=== PATIENT | male | born 1975 | race Caucasian/White ===

== ENCOUNTER 2023-06-30 09:59 | Outpatient (OUT) | payer MEDICAID, SELFPAY ==
--- NOTE | 2023-06-30 10:41 | CA_ITS ---
Patient Name: YOGESH LAMBERT MR#: [id number] : 1975 Exam Date: 06/30/2023 Ordering Doctor: DR TULIO DEAL M.D. ECHOCARDIOGRAM REPORT PROCEDURE: CA ECHO DOPPLER COMPLETE INDICATIONS: Heart failure with reduced ejection fraction, defibrillator, myocardial infarct with PTCA, hypertension COMPARISON: None. DESCRIPTION: COMPLETE ECHOCARDIOGRAM Real-time transthoracic echocardiography with 2D, M-mode, spectral and color flow Doppler performed. QUALITY: Technical quality was good. 69 , 150#, BSA LEFT VENTRICLE: Normal chamber size. Normal left ventricular wall thickness. Systolic function is mildly to moderately reduced. There is hypokinesis of the mid and apical anteroseptum and inferoseptum, apical cap, apical lateral, anterior and inferior wall. LV EF: Mildly to moderately reduced left ventricular ejection fraction, (35-40%). DIASTOLIC: ATRIAL SEPTUM: Visually appears intact. LEFT ATRIUM: Normal chamber size. RIGHT ATRIUM: Normal chamber size. RIGHT VENTRICLE: Normal chamber size. Normal systolic function. Pacer wire present. TRICUSPID VALVE: Normal mobility and thickness. No stenosis with mild regurgitation. No evidence of pulmonary hypertension. RVSP 27 mmHg MITRAL VALVE: Normal mobility and thickness. No evidence of mitral valve stenosis. There is no mitral annular calcification. Mild mitral regurgitation. AORTIC VALVE: Normal trileaflet appearance. No visible sclerosis. Normal leaflet mobility. No evidence of aortic valve stenosis. No aortic regurgitation. AORTIC ROOT: Normal diameter and appearance. PULMONIC VALVE: Normal thickness and mobility. No stenosis. Trivial regurgitation. PERICARDIUM: No evidence of pericardial effusion. IVC: Collapses with inspirations. IVC is normal in size. PLEURA: CONCLUSION: 1. Left ventricular systolic function is mildly to moderately reduced with segmental wall motion abnormalities. LVEF is 35 to 40%. 2. Normal right ventricular size and systolic function. 3. No significant valvular dysfunction. 4. Normal right-sided pressures. 5. No pericardial effusion. Adult Echocardiography Procedure Report Left Ventricle LVEDD (3.7 - 5.6 cm): 4.52 cm LVESD (2.2 - 4.0 cm): 3.25 cm LVIVS thickness (0.6 - 1.2 cm): 0.78 cm LVPW thickness (0.5 - 1.0 cm): 0.95 cm e': 0.11 m/s E - e': 6.95 LVOT Max Gradient: 2.83 mm[Hg], 2.96 mm[Hg] LVOT Area (cm2): 0.85 m/s Peak Velocity (LVOT): 0.84 m/s, 0.86 m/s Mean Velocity (LVOT): 0.53 m/s LVOT Diameter 2.28 cm Left Atrium LA Volume Index (2D A2C): 28.77 ml/m2 Left Atrium Systolic Dimension: 2.77 cm Mitral Valve MV E to A Ratio: 1.15, 1.34 Mitral Valve A-Wave Peak Velocity: 0.60 m/s Mitral Valve E-Wave Peak Velocity: 0.75 m/s Right Ventricle Aorta AO Root Diam: 2.97 cm Ascending Ao Diam: 2.76 cm Aortic Valve AoV Area (Peak Ron): 3.52 cm2, 3.48 cm2 AoV Area (VTI): 3.96 cm2, 4.00 cm2 Peak Velocity(Antegrade Flow): 0.99 m/s Peak Gradient(Antegrade Flow): 3.90 mm[Hg] Mean Velocity(Antegrade Flow): 0.68 m/s Mean Gradient(Antegrade Flow): 2.04 mm[Hg] Velocity Time Integral: 19.17 cm Tricuspid Valve Peak Velocity (Regurgitant Flow): 2.29 m/s, 2.46 m/s, 2.33 m/s Pulmonic Valve Peak Velocity: 0.86 m/s Peak Gradient: 2.91 mm[Hg], 3.03 mm[Hg] Right Atrium Right Atrium Systolic Pressure: 30.43 ml, 30.43 ml Dictated by: Ankush Alejandro M.D. on 06/30/2023 at 17:26 Approved by: Ankush Alejandro M.D. on 06/30/2023 at 17:32
== END 2023-06-30 10:00 | disposition home or self-care (01) ==
LOC: CARD 10:00
PROVIDERS: PCP Family Medicine; Visit Provider Internal Medicine Interventional Cardiology
DX: I50.22 Chronic systolic (congestive) heart failure (principal)
CPT/HCPCS: 93306; 93356

== ENCOUNTER 2024-10-08 09:56 | Outpatient (OUT) | payer MEDICAID, SELFPAY ==
--- NOTE | 2024-10-08 10:00 | CA_ITS ---
Patient Name: YOGESH LAMBERT MR#: [id number] : 1975 Exam Date: 10/08/2024 Ordering Doctor: MIKI JAVED ECHOCARDIOGRAM REPORT PROCEDURE: CA ECHO DOPPLER COMPLETE INDICATIONS: Heart failure with reduced ejection fraction, chest pain, difibrillator, AL, cardiac stents COMPARISON: None. DESCRIPTION: COMPLETE ECHOCARDIOGRAM Real-time transthoracic echocardiography with 2D, M-mode, spectral and color flow Doppler performed. QUALITY: Technical quality was good. LEFT VENTRICLE: Normal chamber size. Normal left ventricular wall thickness. There is thinning and akinesis of the mid and apical septum. There is hypokinesis of the apex. The remaining segments appear to contract well. Global systolic function is mildly reduced. LV EF: Mildly reduced left ventricular ejection fraction, (45%). DIASTOLIC: ATRIAL SEPTUM: Visually appears intact. LEFT ATRIUM: Normal chamber size. RIGHT ATRIUM: Normal chamber size. RIGHT VENTRICLE: Normal chamber size. Normal systolic function. Pacer wire present. TRICUSPID VALVE: Normal mobility and thickness. No stenosis with mild regurgitation. No evidence of pulmonary hypertension. RVSP 26 mmHg MITRAL VALVE: Normal mobility and thickness. No evidence of mitral valve stenosis. There is no mitral annular calcification. Trivial mitral regurgitation. AORTIC VALVE: Normal trileaflet appearance. No visible sclerosis. Normal leaflet mobility. No evidence of aortic valve stenosis. No aortic regurgitation. AORTIC ROOT: Normal diameter and appearance. Ascending aorta is normal in size. PULMONIC VALVE: Normal thickness and mobility. No stenosis. No regurgitation. PERICARDIUM: No evidence of pericardial effusion. IVC: Collapses with inspirations. IVC is normal in size. PLEURA: CONCLUSION: 1. The left ventricle is normal in size and exhibits segmental wall motion abnormalities with mildly reduced global systolic function. LVEF is estimated at 45%. 2. Normal right ventricular size and systolic function. 3. Mild tricuspid regurgitation. 4. Normal right-sided pressures. 5. No pericardial effusion. Adult Echocardiography Procedure Report Left Ventricle LVEDD (3.7 - 5.6 cm): 4.54 cm LVESD (2.2 - 4.0 cm): 3.28 cm LVIVS thickness (0.6 - 1.2 cm): 0.83 cm LVPW thickness (0.5 - 1.0 cm): 0.88 cm e': 0.10 m/s E - e': 7.48 LVOT Max Gradient: 4.72 mm[Hg] LVOT Area (cm2): 1.09 m/s Peak Velocity (LVOT): 1.09 m/s Mean Velocity (LVOT): 0.69 m/s LVOT Diameter 2.48 cm Left Atrium LA Volume Index (2D A2C): 27.54 ml/m2 Left Atrium Systolic Dimension: 3.47 cm Mitral Valve MV E to A Ratio: 1.23 Mitral Valve A-Wave Peak Velocity: 0.63 m/s Mitral Valve E-Wave Peak Velocity: 0.77 m/s Right Ventricle Aorta AO Root Diam: 2.96 cm Ascending Ao Diam: 2.45 cm Aortic Valve AoV Area (Peak Ron): 4.40 cm2, 4.40 cm2 AoV Area (VTI): 4.09 cm2, 4.09 cm2 Peak Velocity(Antegrade Flow): 1.19 m/s Peak Gradient(Antegrade Flow): 5.66 mm[Hg] Mean Velocity(Antegrade Flow): 0.81 m/s Mean Gradient(Antegrade Flow): 3.01 mm[Hg] Velocity Time Integral: 25.48 cm Tricuspid Valve Peak Velocity (Regurgitant Flow): 2.19 m/s, 2.43 m/s, 2.05 m/s Pulmonic Valve Mean Gradient: 2.50 mm[Hg] Mean Velocity: 0.72 m/s Peak Velocity: 1.18 m/s, 1.08 m/s Peak Gradient: 4.68 mm[Hg], 5.58 mm[Hg] Right Atrium Right Atrium Systolic Pressure: 31.57 ml, 31.57 ml Dictated by: Ankush Alejandro M.D. on 10/08/2024 at 17:57 Approved by: Ankush Alejandro M.D. on 10/08/2024 at 18:03
== END 2024-10-08 09:57 | disposition home or self-care (01) ==
LOC: CARD 09:56
PROVIDERS: PCP Family Medicine
DX: I50.22 Chronic systolic (congestive) heart failure (principal)
CPT/HCPCS: 93306

== ENCOUNTER 2024-12-10 12:56 | Emergency (ER) | payer MEDICAID, SELFPAY ==
[2024-12-10 13:01] VITALS: BP 128/77; PULSE 66; TEMP 36.8; O2SAT 95; BMI 22.2
--- NOTE | 2024-12-10 13:08 | ED.GENADUL1 ---
HPI HPI - General Adult General Chief complaint: Extremity Injury, Upper Stated complaint: FALL Time Seen by Provider: 12/10/24 13:05 Source: patient Mode of arrival: walk-in Limitations: no limitations History of Present Illness HPI narrative: The patient is a 49-year-old male who presents to the emergency department today for evaluation of concerns for an injury to his arm. He endorses he has a bad back and subsequently sustained a mechanical fall landed on his right arm. He endorses pain to his right elbow with some shooting pain to mostly the fingertips along the ulnar aspect. He initially mentions he has some pain to his right hand. Head or any LOC. He denies any other injuries from the fall. No back pain. No saddle anesthesia or concerns with bowel/bladder function. No paresthesias, weakness, loss of movement to lower extremities. Related Data Home Medications ?Medication ?Instructions ?Recorded ?Confirmed aspirin 81 mg tablet,delayed 81 mg PO DAILY 12/10/24 12/10/24 release (Adult Aspirin Regimen) atorvastatin 40 mg tablet mg 12/10/24 bupropion HCl 150 mg 24 hr tablet, mg PO 12/10/24 extended release dapagliflozin propanediol 5 mg mg 12/10/24 tablet (Farxiga) metoprolol succinate 25 mg mg PO 12/10/24 tablet,extended release 24 hr nitroglycerin 0.4 mg sublingual mg 12/10/24 tablet Allergies Allergy/AdvReac Type Severity Reaction Status Date / Time acetaminophen (From Vicodin) Allergy Intermediate itching Verified 12/10/24 13:09 hydrocodone (From Vicodin) Allergy Intermediate itching Verified 12/10/24 13:09 prednisone AdvReac Intermediate vomiting Verified 12/10/24 13:09 Opioid HPI Opioid Management Most Recent Opioid Data: Last Pain Scale 6 Today, 14:00 Last ED Pain Assessment Today, 14:00 Last MAR Pain Assessment Today, 13:11 Review of Systems ROS Status of ROS 10 or more systems reviewed and unremarkable except as noted in history and below PFSH PFSH Social History Little interest or pleasure in doing things: not at all Feeling down, depressed, or hopeless: not at all Exam Narrative Exam Narrative: Constituational: Awake/ alert, no apparent distress, well hydrated, + strong odor of marijuana HENMT: normocephalic, external ears normal, moist oral mucous membranes and oropharynx normal Eyes: EOMI and conjunctivae normal Neck: ROM intact Chest: inspection of chest normal Respiratory: Normal respiratory effort, clear to auscultation bilaterally Cardio: regular rate and regular rhythm GI: soft to palpation and non-tender Back: nontender MSK: + Moderate discomfort palpation over posterior R elbow without surrounding edema, ecchymosis, crepitus, deformity, R forearm/upper arm stable. + Mild discomfort with palpation over 1st/2nd and 4th/5th metacarpal region without surrounding edema, ecchymosis, crepitus, deformity. Gross/fine motor movement intact to all digits of R hand L wrist stable, +NVI Skin: no rashes or petechiae Neuro: no focal deficits Psych: mental status grossly normal Constitutional Vital Signs, click to edit/add: Last Vital Signs Temp 98.2 F 12/10/24 13:01 Pulse 74 12/10/24 13:56 Resp 16 12/10/24 13:56 BP 99/59 12/10/24 13:56 Pulse Ox 99 12/10/24 13:56 O2 Del Method Room Air 12/10/24 13:56 Course Vital Signs Vital signs: Vital Signs Temperature 98.2 F 12/10/24 13:01 Pulse Rate 66 12/10/24 13:01 Respiratory Rate 18 12/10/24 13:01 Blood Pressure 128/77 12/10/24 13:01 Pulse Oximetry 95 12/10/24 13:01 Oxygen Delivery Method Room Air 12/10/24 13:01 Temperature 98.2 F 12/10/24 13:01 Pulse Rate 74 12/10/24 13:56 Respiratory Rate 16 12/10/24 13:56 Blood Pressure 99/59 12/10/24 13:56 Pulse Oximetry 99 12/10/24 13:56 Oxygen Delivery Method Room Air 12/10/24 13:56 Medical Decision Making MDM Narrative Medical decision making narrative: The patient is a well-appearing 49-year-old male who presented to the emergency department today for evaluation concerns for an injury to his elbow and right hand following mechanical fall today. Initial examination without any concerning neurovascular motor findings on exam. Patient did endorse pain mostly to posterior aspect of his right elbow in addition to the dorsal aspect of his right hand. X-ray imaging of the right elbow and hand without critical findings. Patient did receive supportive measures of Tylenol and arm was placed in sling for position of comfort. Clinical impression right hand and elbow sprain 2/2 mechanical fall. Discussed this with the patient including recommendations for supportive care. Advised on follow-up with patient's primary care provider for reevaluation. Discussed signs and symptoms of any worsening condition and when to consider reevaluation. Patient verbalized an understanding of this and is agreeable with the plan to be discharged home. Medical Records Medical records reviewed: Yes I reviewed the patient's medical records Imaging Data XR right hand: Attestation: I have reviewed the pertinent imaging results. Radiologist's impression: ITS Impressions Elbow X-Ray 12/10/24 13:28 IMPRESSION: INDETERMINANT FINDING AT THE LATERAL BASE OF THE PROXIMAL PHALANX OF THE FIFTH FINGER FOR WHICH FOCAL CLINICAL CORRELATION IS RECOMMENDED. NO OTHER ACUTE FINDINGS. RIGHT ELBOW - 3 VIEWS COMPARISON: None AP, lateral and oblique views were obtained. There is no evidence of fracture or dislocation. There are no significant soft tissue abnormalities. There is no elbow effusion. IMPRESSION: NO ACUTE BONY INJURY. Impression dictated by: Leah Parrish M.D. 12/10/2024 1:40 PM Dictation Location: [email or web address] Electronically authenticated by: [id number] Y Date: 12/10/2024 13:40 Hand X-Ray 12/10/24 13:28 IMPRESSION: INDETERMINANT FINDING AT THE LATERAL BASE OF THE PROXIMAL PHALANX OF THE FIFTH FINGER FOR WHICH FOCAL CLINICAL CORRELATION IS RECOMMENDED. NO OTHER ACUTE FINDINGS. RIGHT ELBOW - 3 VIEWS COMPARISON: None AP, lateral and oblique views were obtained. There is no evidence of fracture or dislocation. There are no significant soft tissue abnormalities. There is no elbow effusion. IMPRESSION: NO ACUTE BONY INJURY. Impression dictated by: Leah Parrish M.D. 12/10/2024 1:40 PM Dictation Location: [email or web address] Electronically authenticated by: [id number] Y Date: 12/10/2024 13:40 XR right elbow: Radiologist's impression: ITS Impressions Elbow X-Ray 12/10/24 13:28 IMPRESSION: INDETERMINANT FINDING AT THE LATERAL BASE OF THE PROXIMAL PHALANX OF THE FIFTH FINGER FOR WHICH FOCAL CLINICAL CORRELATION IS RECOMMENDED. NO OTHER ACUTE FINDINGS. RIGHT ELBOW - 3 VIEWS COMPARISON: None AP, lateral and oblique views were obtained. There is no evidence of fracture or dislocation. There are no significant soft tissue abnormalities. There is no elbow effusion. IMPRESSION: NO ACUTE BONY INJURY. Impression dictated by: Leah Parrish M.D. 12/10/2024 1:40 PM Dictation Location: [place] [address] Electronically authenticated by: [id number] Y Date: 12/10/2024 13:40 Hand X-Ray 12/10/24 13:28 IMPRESSION: INDETERMINANT FINDING AT THE LATERAL BASE OF THE PROXIMAL PHALANX OF THE FIFTH FINGER FOR WHICH FOCAL CLINICAL CORRELATION IS RECOMMENDED. NO OTHER ACUTE FINDINGS. RIGHT ELBOW - 3 VIEWS COMPARISON: None AP, lateral and oblique views were obtained. There is no evidence of fracture or dislocation. There are no significant soft tissue abnormalities. There is no elbow effusion. IMPRESSION: NO ACUTE BONY INJURY. Impression dictated by: Leah Parrish M.D. 12/10/2024 1:40 PM [facility]ictation [facility] Electronically authenticated by: [id number] Y Date: 12/10/2024 13:40 Discharge Plan Discharge Chief Complaint: Extremity Injury, Upper Clinical Impression: Elbow sprain, Hand sprain Patient Disposition: Home, Self-Care Prescriptions / Home Meds: No Action atorvastatin 40 mg tablet nitroglycerin 0.4 mg tablet, sublingual metoprolol succinate 25 mg tablet extended release 24 hr PO bupropion HCl 150 mg tablet extended release 24 hr PO dapagliflozin propanediol [Farxiga] 5 mg tablet aspirin [Adult Aspirin Regimen] 81 mg tablet,delayed release (DR/EC) 81 mg PO DAILY Print Language: Ghanaian Instructions: Sprain (ED), P.R.I.C.E. Treatment (ED) Additional Instructions: Please, ice, keep arm elevated, and may take Tylenol and ibuprofen as needed for any pain. Sling and Ac wrap for support. Please follow-up with your primary care provider for reevaluation as discussed. Referrals: Michael Rendon DO [Primary Care Provider] - 1 week
[2024-12-10] MEDS: ACETAMINOPHEN 500 MG TABLET 1000 MG PO (13:11)
--- NOTE | 2024-12-10 13:28 | XR_ITS ---
The [address] [address] Patient Name: YOGESH LAMBERT MRN: [id number] date: 1975 Sex: M Assigned Patient Location: ED.MAIN Current Patient Location: ED.MAIN Accession/Order Number: [id number] Exam Date: 12/10/2024 13:35 Report Date: 12/10/2024 13:40 At the request of: DENNISE PORTER NP Procedure: XR elbow RT min 3V CLINICAL DATA: Patient fell. Pain at the right hand and elbow. RIGHT HAND - 3 views COMPARISON: None AP, lateral and oblique views were obtained. A tiny bony density is seen along the lateral base of the proximal phalanx of the fifth finger on the AP view. This might be chronic/degenerative however clinical correlation is recommended to exclude avulsion fracture given the limited history and location of symptoms. There is no additional fracture or dislocation. There are no significant soft tissue abnormalities. XR/XR hand RT min 3V IMPRESSION: INDETERMINANT FINDING AT THE LATERAL BASE OF THE PROXIMAL PHALANX OF THE FIFTH FINGER FOR WHICH FOCAL CLINICAL CORRELATION IS RECOMMENDED. NO OTHER ACUTE FINDINGS. RIGHT ELBOW - 3 VIEWS COMPARISON: None AP, lateral and oblique views were obtained. There is no evidence of fracture or dislocation. There are no significant soft tissue abnormalities. There is no elbow effusion. IMPRESSION: NO ACUTE BONY INJURY. Impression dictated by: Leah Parrish M.D. 12/10/2024 1:40 PM Dictation Location: [place] [address] Electronically authenticated by: [id number] Y Date: 12/10/2024 13:40
--- NOTE | 2024-12-10 13:28 | XR_ITS ---
The [address] [address] Patient Name: YOGESH LAMBERT MRN: [id number] date: 1975 Sex: M Assigned Patient Location: ED.MAIN Current Patient Location: ED.MAIN Accession/Order Number: [id number] Exam Date: 12/10/2024 13:35 Report Date: 12/10/2024 13:40 At the request of: DENNISE PORTER NP Procedure: XR elbow RT min 3V CLINICAL DATA: Patient fell. Pain at the right hand and elbow. RIGHT HAND - 3 views COMPARISON: None AP, lateral and oblique views were obtained. A tiny bony density is seen along the lateral base of the proximal phalanx of the fifth finger on the AP view. This might be chronic/degenerative however clinical correlation is recommended to exclude avulsion fracture given the limited history and location of symptoms. There is no additional fracture or dislocation. There are no significant soft tissue abnormalities. XR/XR elbow RT min 3V IMPRESSION: INDETERMINANT FINDING AT THE LATERAL BASE OF THE PROXIMAL PHALANX OF THE FIFTH FINGER FOR WHICH FOCAL CLINICAL CORRELATION IS RECOMMENDED. NO OTHER ACUTE FINDINGS. RIGHT ELBOW - 3 VIEWS COMPARISON: None AP, lateral and oblique views were obtained. There is no evidence of fracture or dislocation. There are no significant soft tissue abnormalities. There is no elbow effusion. IMPRESSION: NO ACUTE BONY INJURY. Impression dictated by: Leah Parrish M.D. 12/10/2024 1:40 PM Dictation Location: [place] [address] Electronically authenticated by: [id number] Y Date: 12/10/2024 13:40
[2024-12-10 13:56] VITALS: BP 99/59; PULSE 74; O2SAT 99
== END 2024-12-10 14:42 | disposition home or self-care (01) ==
PROVIDERS: Emergency Provider Emergency Medicine; PCP Family Medicine
DX: S53.401A Unspecified sprain of right elbow, initial encounter (principal); S63.91XA Sprain of unspecified part of right wrist and hand, initial encounter; W19.XXXA Unspecified fall, initial encounter
CPT/HCPCS: 73080; 73130; 99283